=== PATIENT | male | born 1950 | race American Indian/Alaskan Native ===

== ENCOUNTER 2017-07-29 08:16 | Outpatient (CLI) | payer MEDICARE, OTHER ==
--- NOTE | 2017-07-29 11:05 | XRay Report ---
LEFT KNEE RADIOGRAPHS INDICATION: Left knee pain. COMPARISON: None similar. FINDINGS: AP, oblique, straight lateral and sunrise views of the left knee demonstrate moderate to severe medial compartment narrowing. Faint horizontal density projects within the lateral joint space. Mild diffuse degenerative spurring. No definite large suprapatellar effusion. Faint atherosclerotic vascular calcifications. CONCLUSION: Left knee osteoarthritic changes, most involving the medial compartment in this patient with underlying CPPD, as described. Please correlate. Thank you for the opportunity to participate in this patient's care.
== END 2017-07-29 08:17 | disposition home or self-care (01) ==
LOC: SPVIMAG 08:16
PROVIDERS: ATTEND Orthopaedic Surgery Sports Medicine
DX: M17.12 Unilateral primary osteoarthritis, left knee (principal); I70.0 Atherosclerosis of aorta